=== PATIENT | female | born 2000 | race Caucasian/White ===

== ENCOUNTER 2022-03-28 16:42 | Emergency (ER) | payer SELFPAY ==
[~2022-03-28] VITALS: Ht 172.7 cm; Wt 66.2 kg
[2022-03-28] MEDS ORDERED: ALBUTEROL SULFATE HFA 8GM INHALATION AEROSOL INH PRN (17:15)
[2022-03-28] MEDS ORDERED: ACETAMINOPHEN 325 MG TAB PO PRN (17:15)
[2022-03-28 17:55] LABS: CLARITY,URINE SL CLOUDY (CLEAR); COLOR,URINE YELLOW (YELLOW); KETONES,URINE >=160 (NEGATIVE); LEUKOCYTE ESTERASE ,URINE NEGATIVE (NEGATIVE); NITRITE,URINE NEGATIVE (NEGATIVE); PROTEIN,URINE DIPSTICK 2+ (NEGATIVE); URINE UROBILINOGEN 1 mg/dL (0.2 - 1)
[2022-03-28 18:13] LABS: BACTERIA,URINE MODERATE /HPF; EPITHELIAL CELLS,URINE MANY /LPF; RBC,URINE 0-5 /HPF (0-5); WBC,URINE (MAN) 0-5 /HPF (0-5)
[2022-03-28] MEDS ORDERED: DEXAMETHASONE 4 MG TAB PO STA (18:51)
[2022-03-28 18:57] VITALS: BP 131/84
[2022-03-28] MEDS ORDERED: DEXAMETHASONE SOD PHOS 10 MG/1 ML VIAL ONE (19:04)
== END 2022-03-28 18:59 | disposition home or self-care (01) ==
LOC: ER 17:06
DX: R50.9 Fever, unspecified (principal); B97.4 Respiratory syncytial virus as the cause of diseases classified elsewhere; J45.909 Unspecified asthma, uncomplicated; Z20.822 Contact with and (suspected) exposure to COVID-19; R94.31 Abnormal electrocardiogram [ECG] [EKG]
CPT/HCPCS: 71045; 81001; 81025; 93005; 99282; J1100; U0002